=== PATIENT | male | born 1935 | race Caucasian/White ===

== ENCOUNTER 2017-11-09 13:45 | Inpatient (IN) ==
[2017-11-09] MEDS ORDERED: Nitroglycerin 0.4 MG TAB.SUBL SL PRN (18:30)
[2017-11-09] MEDS ORDERED: Naloxone 0.4 MG/ML INJ IVP PRN ×2 (18:33→18:38)
[2017-11-09] MEDS ORDERED: traMADol 50 MG TABLET PO PRN (18:33)
[2017-11-09] MEDS ORDERED: Acetaminophen 325 MG TABLET PO PRN (18:33)
[2017-11-09] MEDS ORDERED: *HR* Heparin 5,000 UNIT/ML VIAL IVP ONE (18:50)
[2017-11-09] MEDS ORDERED: *HR* Heparin 5,000 UNIT/ML VIAL IVP PRN ×2 (18:50)
--- NOTE | 2017-11-09 18:54 | Internal Med History&Physical ---
Date of Encounter: 11/09/17 Time of Encounter: 18:51 Internal Medicine - H&P: HPI Admitted From: Home Plans for Post Hospital Care: Home History of present illness: Mr. Duke is a 81-year-old white male presents emergency department via private vehicle complaining of shortness of breath and chest pain. He has a history of COPD and CHF, this morning feeling more short of breath than usual. He says he used a nebulizer treatment and then started having chest pain. He describes a midsternal chest burning that seems to have gotten somewhat better. He continues to be short of breath and upon arrival his oxygen saturation is 75%. He says he uses 3 L by nasal cannula at home 24 hours a day. His oxygen saturation improved significantly when he was placed in the bed and put on 5 L of nasal cannulated oxygen. He continues to be short of breath. He denies any nausea or vomiting. He has had no fever and denies a productive cough. He says that he feels like his ankles have been swollen. Past Med Surg Social Fam HX - Past Medical History Medical history: cardiomyopathy, CHF, COPD, coronary artery disease, diabetes, GERD, hyperlipidemia, hypertension, myocardial infarction, renal disease, TIA Psychiatric history: no psych history - Past Surgical History Surgical History: angioplasty/stent, appendectomy, carotid endarterectomy, coronary bypass (CABG) (1988), herniorrhaphy, pacemaker/AICD (upgrade to BiV- ICD on 03/29/[address] Vito Titus ) - Social History Smoking Status: Former smoker Smokeless Tobacco Status: No Alcohol use: none Drug use: none - Family History Mother Living Status: Hx Family Cardiac Disorders: Yes Father Living Status: Hx Family Endocrine Disorder: Yes (diabetes) Internal Medicine - H&P: Meds Aspirin [Adult Low Dose Aspirin EC] 81 mg PO DAILY 09/04/15 [History] Clopidogrel [Plavix] 75 mg PO DAILY 09/04/15 [History] HYDROcodone/Acet 5/325 mg [[place] 5-325 mg] 1 tab PO Q6H PRN 09/04/15 [History] Nitroglycerin [Nitrostat] 0.4 mg SL DAILY PRN 09/04/15 [History] Omeprazole [PriLOSEC] 20 mg PO DAILY 09/04/15 [History] Carvedilol 12.5 mg PO BID 02/16/16 [History] Isosorbide MONOnitrate (24 HR) [Imdur] 120 mg PO DAILY 02/16/16 [History] Simvastatin [Zocor] 40 mg PO HS 02/16/16 [History] Valsartan [Diovan] 40 mg PO DAILY 02/16/16 [History] Albuterol Sulfate [Albuterol Inhaler] 2 puff IH Q6HR PRN 07/06/17 [History] Benzonatate [Tessalon] 100 mg PO TID 07/06/17 [History] Ezetimibe [Zetia] 10 mg PO DAILY 07/06/17 [History] GuaiFENesin/Dextromethorphan [Robitussin/DM] 5 ml PO Q6HR #118 syrup 07/06/17 [ Rx] Guaifenesin [Mucinex] 600 mg PO BID 07/06/17 [History] Oseltamivir [Tamiflu] 75 mg PO DAILY #10 capsule 07/06/17 [Rx] predniSONE [PredniSONE] 40 mg PO DAILY 5 Days #20 tablet 07/06/17 [Rx] Ibuprofen 800 mg PO TID PRN #15 tablet 07/27/17 [Rx] 3 Allergy/AdvReac Type Severity Reaction Status Date / Time lisinopril Allergy Severe Swelling Verified 03/30/15 07:40 of Lip/Tongue/Throat All Systems PM: A 10-system review of systems was performed and is negative for pertinent findings except as documented above in the HPI. Review of systems: REVIEW OF SYSTEMS: CONSTITUTIONAL: No weight loss, fever, chills, weakness or fatigue. HEENT: Eyes: No visual loss, blurred vision, double vision or yellow sclerae. Ears, Nose, Throat: No hearing loss, sneezing, congestion, runny nose or sore throat. SKIN: No rash or itching. CARDIOVASCULAR: see HPI. RESPIRATORY: No shortness of breath, cough or sputum. GASTROINTESTINAL: No anorexia, nausea, vomiting or diarrhea. No abdominal pain or blood. GENITOURINARY: No dysuria, urgency, or frequency. NEUROLOGICAL: No headache, dizziness, syncope, paralysis, ataxia, numbness or tingling in the extremities. No change in bowel or bladder control. MUSCULOSKELETAL: No muscle, back pain, joint pain or stiffness. HEMATOLOGIC: No anemia, bleeding or bruising. LYMPHATICS: No enlarged nodes. No history of splenectomy. PSYCHIATRIC: No history of depression or anxiety. ENDOCRINOLOGIC: No reports of sweating, cold or heat intolerance. No polyuria or polydipsia. - Constitutional Vitals: Temp Pulse Resp BP Pulse Ox 97.6 F 72 14 158/74 96 11/09/17 16:10 11/09/17 16:10 11/09/17 16:10 11/09/17 16:10 11/09/17 16:10 General appearance: Present: A&O X 3 Exam: PHYSICAL EXAMINATION: GENERAL APPEARANCE: The patient is alert, oriented and in no acute distress. HEENT: Head is normocephalic. The sinuses are nontender. Pupils are equal and reactive. The nares are patent. Oropharynx clear without lesions. NECK: Supple without lymphadenopathy. HEART: Regular rate and rhythm. LUNGS: bilateral crackles up to the middle lung zone. ABDOMEN: Soft, nontender, nondistended with good bowel sounds heard. Inguinal area is normal. EXTREMITIES: Without cyanosis, clubbing or edema. NEUROLOGICAL: Gross nonfocal. SKIN: Warm and dry without any rash. - Assessment and plan (1) Acute respiratory failure with hypoxia Current Visit: Yes Status: Acute Assessment and plan: This is a 81-year-old male with past medical history of COPD, CAD status post stent placement, CHF, and hypertension presented with acute respiratory failure with hypoxia. - History of COPD, using oxygen 2-3 L at home. Patient used breathing treatment at home but does not help her symptoms. Not much wheezing on physical exam. - Recent diagnosis CHF, TTE 10/2017 showed ejection fraction 30-35%, global hypokinesia, and mild diastolic dysfunction. Patient already had a defibrillator. He is on Valsartan, Coreg, isosorbide at home, symptoms is consistent with NYHA stage III, unclear why the patient is not on diuretics, his blood pressure is not well controlled upon arrival. Chest x-ray revealed bilateral pulmonary congestion.. Patient on Lasix IV plus Aldactone. Valsartan dose increased to achieve better BP control. Patient may be a good candidate for Entresto. - Low-salt diet, strict I's and O's, daily weight. (2) CHF (congestive heart failure), NYHA class III Current Visit: Yes Status: Acute Assessment and plan: - Same as above. Qualifiers: Congestive heart failure type: systolic Congestive heart failure chronicity : chronic Qualified Code(s): I50.22 - Chronic systolic (congestive) heart failure (3) Elevated troponin Current Visit: Yes Status: Acute Assessment and plan: Troponin slightly elevated, unclear this is this is caused by [place] or CHF exacerbation. We will start patient on heparin drip, cycle troponin, telemetry monitoring, and EKG as needed. - Patient already on aspirin and Plavix at home. (4) CAD (coronary artery disease) Current Visit: No Status: Chronic Assessment and plan: - same as above. Qualifiers: Coronary Disease-Associated Artery/Lesion type: barrow artery [place] vs. transplanted heart: barrow heart Associated angina: with stable angina Qualified Code(s): I25.118 - Atherosclerotic heart disease of barrow coronary artery with other forms of angina pectoris (5) HTN (hypertension) Current Visit: No Status: Chronic Assessment and plan: - BP slightly elevated, medication adjusted as described above. Qualifiers: Hypertension type: essential hypertension Qualified Code(s): I10 - Essential (primary) hypertension (6) COPD (chronic obstructive pulmonary disease) Current Visit: No Status: Chronic Assessment and plan: - Continue home medication, oxygen as needed. Qualifiers: COPD type: chronic bronchitis Chronic bronchitis type: unspecified Qualified Code(s): J42 - Unspecified chronic bronchitis (7) Cardiomyopathy Current Visit: No Status: Chronic Assessment and plan: -Stable, continue home medications. Qualifiers: Cardiomyopathy type: unspecified Qualified Code(s): I42.9 - Cardiomyopathy , unspecified - Time Spent With Patient Total time spent is greater than 50% in coordination of care (as documented) at patient's floor/unit and/or counseling patient: Greater than 35 minutes
[2017-11-09 19:25] LABS: Hemoglobin 12.4 g/dL (12.9-16.9); Mean Corpuscular HGB Conc 32.6 g/dL (31.6-35.5); Mean Corpuscular Hemoglobin 27.9 pg (28.0-33.3); Mean Corpuscular Volume 85.6 fL (83.0-100.0); Mean Platelet Volume 10.4 fL (9.4-12.4); Platelet Count 181 K/mcL (140-400); Red Blood Count 4.44 M/mcL (4.19-5.50); Red Cell Distribution Width 14.6 % (11.5-14.5)
[2017-11-09 20:07] LABS: INR 1.2; Prothrombin Time 13.4 Seconds (9.4-12.1)
[2017-11-09 20:09] LABS: Activated Partial Thrombo Time 29.5 Seconds (26.0-36.0)
[2017-11-09] MEDS: Heparin 25,000 UNIT/500 ML D5W 25,000 UNIT/500 ML BAG IVC SCH (20:34)
--- NOTE | 2017-11-09 21:59 | Event Note ---
Date of Encounter: 11/09/17 Time of Encounter: 20:00 Rec'd call regarding critical trop level. The first was 0.11, and now it is 1.12. The patient denies any chest pain and is currently on a heparin drip. Consult placed for cardiology. Told the floor that cardiology should be called in am.
[2017-11-10 03:12] LABS: Hematocrit 36.2 % (37.5-50.1); Hemoglobin 11.9 g/dL (12.9-16.9); Immature Granulocytes % 0.9 % (0-4); Lymphocytes # 0.7 K/mcL (0.6-4.6); Lymphocytes % 9.8 %; Mean Corpuscular HGB Conc 32.9 g/dL (31.6-35.5); Mean Corpuscular Hemoglobin 27.9 pg (28.0-33.3); Mean Corpuscular Volume 84.8 fL (83.0-100.0); Mean Platelet Volume 10.4 fL (9.4-12.4); Monocytes # 0.1 K/mcL (0.0-1.3); Neutrophils # 6.2 K/mcL (1.6-8.9); Platelet Count 175 K/mcL (140-400); Red Blood Count 4.27 M/mcL (4.19-5.50); Red Cell Distribution Width 14.8 % (11.5-14.5); Segmented Neutrophils % 88.3 %
[2017-11-10 03:31] LABS: Calcium 8.7 mg/dL (8.6-10.3); Chol/HDL Ratio 3.1 (0-4.9); Potassium 3.6 mEq/L (3.5-5.1)
[2017-11-10] MEDS ORDERED: Furosemide 20 MG/2 ML VIAL IVP SCH (08:00)
[2017-11-10] MEDS ORDERED: (Ezetimibe [Zetia] 10 MG) PO SCH (09:00)
[2017-11-10] MEDS ORDERED: Valsartan 80 MG TABLET PO SCH (09:00)
[2017-11-10] MEDS: Isosorbide MONOnitrate (24 HR) 60 MG TAB.ER.24H PO SCH (10:08)
[2017-11-10] MEDS: Spironolactone 25 MG TABLET PO SCH (10:09)
[2017-11-10] MEDS: Valsartan 80 MG TABLET PO SCH (10:09)
[2017-11-10] MEDS: Aspirin Enteric Coated 81 MG Tablet PO SCH (10:09)
--- NOTE | 2017-11-10 10:22 | Cardiology Consult Note ---
<Gabi Rivas April - Last Filed: 11/10/17 10:25> Date of Encounter: 11/10/17 Time of Encounter: 10:00 Assessment and Plan (1) NSTEMI (non-ST elevated myocardial infarction) Current Visit: Yes Status: Acute Peak troponin 1.16 with downward trend. ECG unchanged from previous. Pain free upon exam. Reports typical chest pain symptoms prior to admission, did not improve with x3 NTG tabs. Also hypoxic upon presentation. Hx of CAD s/p CABG (x2); last LHC 2013 s/p PCI to bypass grafts. Discussed possible LHC with possible PCI; patient declines presently and wants to proceed with medical management if symptoms can be controlled. Continue heparin gtt for 48 hours, asa, statin, BB, nitrates, and plavix. Will add Ranexa. Check limited echo, if no significant changes in EF, will likely continue medical therapy. (2) Ischemic cardiomyopathy Current Visit: Yes Status: Acute Hx of ischemic cardiomyopathy s/p BiV-ICD. Last EF assessment, few weeks ago and demonstrated EF 30-35%--similar to prior. Had mildly abnormal stress (mild reversible ischemic at apex) has been medically managed. Last PCI 2013 s/p TAWANA to SVG- R PDA and SVG to diagonal 1. Continue current medical therapy including asa, statin, plavix, nitrates, ARB, and BB. (3) CHF (congestive heart failure), NYHA class III Current Visit: Yes Status: Acute Mild volume overload upon exam, LE edema presents which is new for patient. Not previously requiring diuretic as outpatient. Agree with IV lasix. Strict I&Os, daily weights, Na/fluid restricted diet. Continue BB, ARB. Qualifiers: Congestive heart failure type: systolic Congestive heart failure chronicity : acute on chronic Qualified Code(s): I50.23 - Acute on chronic systolic ( congestive) heart failure (4) Renal insufficiency Current Visit: Yes Status: Acute Hx of CKD. SCr appears to be stable today. Monitor kidney function closely as we are diuresing. Discussion w patient/family: The assessment and plan as outlined above was discussed with the patient and/or family members who expressed understanding and agreement. All questions were answered. Thank you for involving us in the care of your patient. Please call with any questions. The patient will be discussed and reviewed with Dr. Patel; changes to be made accordingly. History of Present Illness Consult date: 11/10/17 Requesting physician: Stacia King Consult reason: Elevated troponin Chief complaint: Chest pain History of present illness: Mr. Duke is a 81 year old male with PMHx significant for CAD s/p CABG (x2) s/p PCI, ischemic cardiomyopathy s/p BiV-ICD, HTN, HLD, PAD, and hx of AV block who presented to the ED with complaints of midsternal chest burning that started yesterday. Reports he took a total of 3 NTG tabs which did not improve pain which prompted ED evaluation. Upon arrival at [facility] ED, SPO2 waa 75%, supplemental oxygen was administered with breathing treatment and pain reportedly resolved. He reports ongoing shortness of breath and difficulty breathing which has seemed to worsen over the past 2 months in addition to lower extremity edema. Of note, has not previously been on lasix. ECG upon arrival demonstrated paced rhythm. Troponin peak at 1.16 with downward trend. Reports brown sputum production this morning. CXR at [facility] demonstrated vascular congestion, multifocal PNA vs. pulmonary edema Prior CV testing: TTE 10/27/17: LVEF 30-35%, global LV hypokinesis, severely dilated LA, no PH, mild LVDD Regadenoson nuclear 08/31/16: mild reversible liliya-infarct ischemia at apex, medium to large infarct involving the inferior wall, inferolateral wall, and apex, gated EF=38%, LV is dilated [facility] 05/2014: severe 3vCAD, EF 35%, s/p patent 4/5 patent bypass grafts; BARRAZA- mLAD patent, sequential SVG-2nd OM patent, SVG-dLAD occluded and s/p successful PTCA/DE to prox-mid body of SVG-R PDA and TAWANA to dSVG-diag 1; previously stented proximal body of SVG to diag 1 widely patent. Past Med Surg Social Fam HX - Past Medical History Attestation: Yes The following information was validated with the patient. Source: patient Medical history: cardiomyopathy, CHF, COPD, coronary artery disease, diabetes, GERD, hyperlipidemia, hypertension, myocardial infarction, renal disease, TIA Psychiatric history: no psych history - Past Surgical History Surgical History: angioplasty/stent, appendectomy, carotid endarterectomy, coronary bypass (CABG), herniorrhaphy, pacemaker/AICD - Social History Smoking Status: Former smoker Smokeless Tobacco Status: No Alcohol use: none Drug use: none - Family History Mother Living Status: Hx Family Cardiac Disorders: Yes Father Living Status: Hx Family Endocrine Disorder: Yes (diabetes) Medications and Allergies Clopidogrel [Plavix] 75 mg PO DAILY 09/04/15 [History] HYDROcodone/Acet 5/325 mg [[place] 5-325 mg] 1 tab PO Q6H PRN 09/04/15 [History] Nitroglycerin [Nitrostat] 0.4 mg SL DAILY PRN 09/04/15 [History] Omeprazole [PriLOSEC] 20 mg PO DAILY 09/04/15 [History] Carvedilol 12.5 mg PO BID 02/16/16 [History] Isosorbide MONOnitrate (24 HR) [Imdur] 120 mg PO DAILY 02/16/16 [History] Simvastatin [Zocor] 40 mg PO HS 02/16/16 [History] Valsartan [Diovan] 40 mg PO DAILY 02/16/16 [History] Albuterol Sulfate [Albuterol Inhaler] 2 puff IH Q6HR PRN 07/06/17 [History] Ezetimibe [Zetia] 10 mg PO DAILY 07/06/17 [History] Tiotropium Br/Olodaterol HCl [Stiolto Respimat Inhal [place]] 2 puff IH DAILY [History] 3 Allergy/AdvReac Type Severity Reaction Status Date / Time lisinopril Allergy Severe Swelling Verified 03/30/15 07:40 of Lip/Tongue/Throat All Systems Review: The remainder of the systems were reviewed and are negative - Cardiovascular Cardiovascular: as per HPI Physical Examination Vital Signs, Last 4 Hours Temp Pulse Resp BP Pulse Ox 11/10/17 07:39 97.5 F L 70 20 103/57 92 General: Conversant HEENT: Atraumatic, Normocephaly Cardiac: Reg Rate and Rhythm, Normal S1 and S2 Lungs: Normal Breath Sounds Neuro: Alert and responsive Abdomen: Soft Skin: No rashes noted on visualized skin Extremities: Other (mild BLE edema noted. ) Results 11/10/17 02:51 11/10/17 02:51 Lab Results 11/09/17 11/09/17 11/09/17 18:51 18:55 18:55 WBC 4.6 Hgb 12.4 L Hct 38.0 Plt Count 181 INR 1.2 APTT 29.5 Sodium Potassium Chloride Carbon Dioxide BUN Creatinine Glucose Calcium Troponin I 1.12 H* 11/10/17 11/10/17 11/10/17 00:26 02:51 02:51 WBC 7.0 D Hgb 11.9 L Hct 36.2 L Plt Count 175 INR APTT Sodium 142 Potassium 3.6 Chloride 101 Carbon Dioxide 30 H BUN 18 Creatinine 1.40 H Glucose 175 H Calcium 8.7 Troponin I 1.16 H* 11/10/17 11/10/17 11/10/17 02:51 06:16 08:52 WBC Hgb Hct Plt Count INR APTT 92.6 H D 68.1 H Sodium Potassium Chloride Carbon Dioxide BUN Creatinine Glucose Calcium Troponin I 0.76 H* Active Medications Acetaminophen (Tylenol) 650 mg PO Q6HR PRN PRN Reason: Mild Pain/Fever Stop: 05/11/18 18:34 Aspirin (Aspirin Ec) 81 mg PO DAILY [facility] Stop: 05/12/18 09:01 Last Admin: 11/10/17 10:09 Dose: 81 mg Carvedilol (Coreg) 12.5 mg PO BIDWM ANALISA Stop: 05/11/18 21:01 Last Admin: 11/10/17 10:09 Dose: 12.5 mg Clopidogrel Bisulfate (Plavix) 75 mg PO DAILY ANALISA Stop: 05/12/18 09:01 Last Admin: 11/10/17 10:08 Dose: 75 mg Furosemide (Lasix) 20 mg IVP BIDDIURETIC ANALISA Stop: 05/12/18 08:01 Last Admin: 11/10/17 10:08 Dose: 20 mg Heparin Sodium (Porcine) (Heparin) 6,200 unit 70 unit/kg (6200 unit) IVP Q6HR PRN PRN Reason: SEE COMMENTS Stop: 05/11/18 18:51 Heparin Sodium (Porcine) (Heparin) 3,100 unit 35 unit/kg (3100 unit) IVP Q6H PRN PRN Reason: SEE COMMENTS Stop: 05/11/18 18:51 Hydralazine HCl (Hydralazine) 10 mg IVP Q6HR PRN PRN Reason: Hypertension BP>160 Stop: 05/12/18 00:15 Last Admin: 11/10/17 00:32 Dose: 10 mg Heparin Sodium/Dextrose (Heparin 25,000 Unit/500 Ml D5w) 25,000 unit in 500 mls @ 24.741 mls/hr IVC .[id number] ANALISA; 14 UNIT/KG/HR PRN Reason: Protocol Stop: 05/11/18 19:01 Last Titration: 11/10/17 03:40 Dose: 14 unit/kg/hr, 24.741 mls/hr Isosorbide Mononitrate (Imdur) 120 mg PO DAILY ANALISA Stop: 05/12/18 09:01 Last Admin: 11/10/17 10:08 Dose: 120 mg Naloxone HCl (Narcan) 0.4 mg IVP Q2MIN PRN PRN Reason: SEE COMMENTS Stop: 05/11/18 18:39 Nitroglycerin (Nitroglycerin) 0.4 mg SL DAILY PRN PRN Reason: Chest Pain Stop: 05/11/18 18:31 Omeprazole (Prilosec) 20 mg PO DAILY ANALISA PRN Reason: Protocol Stop: 05/12/18 09:01 Last Admin: 11/10/17 10:08 Dose: 20 mg Simvastatin (Zocor) 40 mg PO HS ANALISA PRN Reason: Protocol Stop: 05/11/18 21:01 Last Admin: 11/09/17 20:32 Dose: 40 mg Spironolactone (Aldactone) 12.5 mg PO DAILY [facility] Stop: 05/12/18 09:01 Last Admin: 11/10/17 10:09 Dose: 12.5 mg Tramadol HCl (Ultram) 50 mg PO Q6HR PRN PRN Reason: Moderate Pain Stop: 05/11/18 18:34 Valsartan (Diovan) 80 mg PO DAILY [facility] Stop: 05/12/18 09:01 Last Admin: 11/10/17 10:09 Dose: 80 mg - Imaging and Cardiology Stress Test: report reviewed Echo: report reviewed Cardiac cath: report reviewed Other Results: 12 hour tele: avg HR=74 - EKG Interpretation EKG results cardiology: personally reviewed Consult Discharge Plan - Plan Referrals: Wili Kendrick MD [Primary Care Provider] - <Diego Patel - Last Filed: 11/10/17 16:01> Date of Encounter: 11/10/17 - Attending Attestation I have personally performed a face to face evaluation on this patient. I have reviewed and agree with the care plan. History and Exam by me shows: 81 YOM with extensive CAD s/p PCI of 2/4 vein grafts 2014/patent BARRAZA to LAD, with an EF 35% also s/p ICD. He is mildly volume overloaded with chest pain likely ischemic in nature. Patient declines a LHC and would likelt o try aggressive medical management. I do feel he will likely need a LHC but as per patients wishes will pursue medical management Assessment and Plan Discussion w patient/family: The assessment and plan as outlined above was discussed with the patient and/or family members who expressed understanding and agreement. All questions were answered. Thank you for involving us in the care of your patient. Please call with any questions. History of Present Illness History of present illness: Mr. Duke is a 81 year old male All Systems Review: The remainder of the systems were reviewed and are negative Physical Examination Vital Signs, Last 4 Hours BP 11/10/17 13:55 115/53 Results 11/10/17 02:51 11/10/17 02:51 Lab Results 11/09/17 11/09/17 11/09/17 18:51 18:55 18:55 WBC 4.6 Hgb 12.4 L Hct 38.0 Plt Count 181 INR 1.2 APTT 29.5 Sodium Potassium Chloride Carbon Dioxide BUN Creatinine Glucose Calcium Troponin I 1.12 H* 11/10/17 11/10/17 11/10/17 00:26 02:51 02:51 WBC 7.0 D Hgb 11.9 L Hct 36.2 L Plt Count 175 INR APTT Sodium 142 Potassium 3.6 Chloride 101 Carbon Dioxide 30 H BUN 18 Creatinine 1.40 H Glucose 175 H Calcium 8.7 Troponin I 1.16 H* 11/10/17 11/10/17 11/10/17 02:51 06:16 08:52 WBC Hgb Hct Plt Count INR APTT 92.6 H D 68.1 H Sodium Potassium Chloride Carbon Dioxide BUN Creatinine Glucose Calcium Troponin I 0.76 H*
[2017-11-10] MEDS ORDERED: Furosemide 20 MG TABLET PO PRN (16:26)
--- NOTE | 2017-11-10 16:27 | Internal Med Progress Note ---
Date of Encounter: 11/10/17 Time of Encounter: 16:00 - Assessment and plan (1) NSTEMI (non-ST elevated myocardial infarction) Current Visit: Yes Status: Acute Assessment and plan: His trop peaked at 1.12 Started trendong down he does have severe CAD s/p CABG, s/p stent to bypass grafts too he would get benefit with C however pt refusing for LHC now wanted to try medical management Card is on board cont Heparin gtt for 48 hrs cont ASA + Plavix + Statin + BB + Imdur + Ranexa _+ ARB (2) Acute respiratory failure with hypoxia Current Visit: Yes Status: Acute Assessment and plan: Due to CHF exacerbation cont Diuresis switch to PO Lasix Cont Aldactone try to wean him off the O2 (3) Systolic CHF, acute on chronic Current Visit: Yes Status: Acute Assessment and plan: Improving switched to PO Lasix reviewed 2 D Echo showed LVEF 40% (4) Cardiomyopathy Current Visit: No Status: Chronic Assessment and plan: Ischemic cardiomyopathy Qualifiers: Cardiomyopathy type: unspecified Qualified Code(s): I42.9 - Cardiomyopathy , unspecified (5) CAD (coronary artery disease) Current Visit: No Status: Chronic Qualifiers: Coronary Disease-Associated Artery/Lesion type: [place] artery [place] vs. transplanted heart: [place] heart Associated angina: with stable angina Qualified Code(s): I25.118 - Atherosclerotic heart disease of [place] coronary artery with other forms of angina pectoris (6) HTN (hypertension) Current Visit: No Status: Chronic Assessment and plan: Stable and well controlled with current regimen Qualifiers: Hypertension type: essential hypertension Qualified Code(s): I10 - Essential (primary) hypertension (7) COPD (chronic obstructive pulmonary disease) Current Visit: No Status: Chronic Assessment and plan: Not in exacerbation Continue home regimen INH Try to wean him off the O2 to home dose Qualifiers: COPD type: chronic bronchitis Chronic bronchitis type: unspecified Qualified Code(s): J42 - Unspecified chronic bronchitis - Time Spent With Patient Total time spent is greater than 50% in coordination of care (as documented) at patient's floor/unit and/or counseling patient: - Subjective Interval history: Mr. Duke is a 81-year-old white male presents to ER with complaining of shortness of breath and chest pain. He has a history of COPD, chronic hypoxic resp failure and Systolic CHF. He also c/o chest pain, described as a midsternal chest burning that seems to have gotten somewhat better with nitro. He continues to be short of breath and upon arrival his oxygen saturation is 75% . He says he uses 3 L by nasal cannula at home 24 hours a day. His oxygen saturation improved significantly when he was placed in the bed and put on 5 L of nasal cannulated oxygen. He also have significantly elevated Trop @ 1.12 He was admitted in the hospital and started him on IV diuresis. Last night his troponin peaked at 1.16 and started trending down now. He denied any more CP. Still has some SOB and NASCIMENTO. Currently on 4 lit O2. - Constitutional Vitals: Temp Pulse Resp BP Pulse Ox 97.4 F L 67 18 115/53 95 11/10/17 10:44 11/10/17 10:44 11/10/17 10:44 11/10/17 13:55 11/10/17 10:44 General appearance: Present: A&O X 3 - Head Head exam: Present: atraumatic, normal inspection - Neck Neck exam general surgery: Present: supple - Respiratory Respiratory exam: Present: decreased breath sounds. Absent: rales, respiratory distress, rhonchi, wheezes - Cardiovascular Cardiovascular exam: Present: RRR, +S1, +S2. Absent: tachycardia - GI/Abdominal GI/Abdominal exam: Present: normal bowel sounds, soft. Absent: rebound, rigid, tenderness - Extremities Exam Extremities exam: Absent: calf tenderness, pedal edema, tenderness - Back Exam Back exam: Absent: CVA tenderness (L), CVA tenderness (R) - Neurological Exam Neurological exam: Present: alert, oriented X3 - Psychiatric Psychiatric exam: Present: normal affect, normal mood - Skin Skin exam: Absent: rash Internal Medicine: Result - Labs CBC & Chem 7: 11/10/17 02:51 11/10/17 02:51 Labs: Short CBC 11/09/17 11/10/17 Range/Units 18:55 02:51 WBC 4.6 7.0 D (4.3-11.1) K/mcL Hgb 12.4 L 11.9 L (12.9-16.9) g/dL Hct 38.0 36.2 L (37.5-50.1) % Plt Count 181 175 (140-400) K/mcL Neutrophils # 6.2 (1.6-8.9) K/mcL BMP 11/10/17 02:51 Sodium 142 Potassium 3.6 Chloride 101 Carbon Dioxide 30 H BUN 18 Creatinine 1.40 H Glucose 175 H Calcium 8.7 Cardiac Enzymes 11/09/17 11/10/17 11/10/17 Range/Units 18:51 00:26 06:16 Troponin I 1.12 H* 1.16 H* 0.76 H* (< 0.04) ng/mL - ABG Interpretation ABG results: PT/INR, D-dimer PT 13.4 Seconds (9.4-12.1) H 11/09/17 18:55 - Impressions Impressions Echocardiogram Limited Views 11/10/17 10:51 Impressions: LVEF 40%. Normal LV chamber size. Mild concentric left ventricular hypertrophy. Global left ventricular systolic dysfunction. Atypical septal motion consistent with post-operative status. Left Ventricular Wall Motion: Rest Echo Findings The apex, apical inferior, mid inferior, basal inferior, apical anterior, mid anterior, basal anterior, apical septal, mid inferior septal, basal inferior septal, apical lateral, mid anterior lateral, basal anterior lateral, mid anterior septal, mid inferior lateral, basal anterior septal and basal inferior lateral lyles were hypokinetic. Findings: Study Quality * Technically adequate exam. ECG Findings * Paced rhythm. Left Ventricle * LVEF 40%. * Normal LV chamber size. * Mild concentric left ventricular hypertrophy. * Global left ventricular systolic dysfunction. * Atypical septal motion consistent with post-operative status. Right Ventricle * Normal right ventricular structure and function. Aorta * Normally sized aortic root. Pericardium * The pericardium appears normal. Device lead * A device lead was visualized in the right atrium and right ventricle. Consult Discharge Plan - Plan Referrals: Wili Kendrick MD [Primary Care Provider] -
[2017-11-10] MEDS: Heparin 25,000 UNIT/500 ML D5W 25,000 UNIT/500 ML BAG IVC SCH (17:16)
[2017-11-10] MEDS: Ranolazine 500 MG TAB.ER.12H PO SCH ×3 (17:16→21:29)
[2017-11-11 03:29] LABS: Basophils % 0.1 %; Hematocrit 34.4 % (37.5-50.1); Hemoglobin 10.7 g/dL (12.9-16.9); Immature Granulocytes % 0.4 % (0-4); Lymphocytes # 1.1 K/mcL (0.6-4.6); Lymphocytes % 9.3 %; Mean Corpuscular HGB Conc 31.1 g/dL (31.6-35.5); Mean Corpuscular Hemoglobin 26.6 pg (28.0-33.3); Mean Corpuscular Volume 85.6 fL (83.0-100.0); Mean Platelet Volume 10.5 fL (9.4-12.4); Monocytes # 0.5 K/mcL (0.0-1.3); Monocytes % 4.4 %; Neutrophils # 9.9 K/mcL (1.6-8.9); Platelet Count 186 K/mcL (140-400); Red Blood Count 4.02 M/mcL (4.19-5.50); Red Cell Distribution Width 14.7 % (11.5-14.5); Segmented Neutrophils % 85.8 %
[2017-11-11 03:51] LABS: Calcium 8.4 mg/dL (8.6-10.3); Magnesium 1.8 mg/dL (1.6-2.6); Potassium 3.7 mEq/L (3.5-5.1)
[2017-11-11 03:56] LABS: Troponin I 0.52 ng/mL (< 0.04)
[2017-11-11] MEDS: Spironolactone 25 MG TABLET PO SCH (07:53)
[2017-11-11] MEDS: Valsartan 80 MG TABLET PO SCH (07:53)
[2017-11-11] MEDS: Isosorbide MONOnitrate (24 HR) 60 MG TAB.ER.24H PO SCH (07:53)
[2017-11-11] MEDS: Ranolazine 500 MG TAB.ER.12H PO SCH ×2 (07:53→21:45)
[2017-11-11] MEDS: Aspirin Enteric Coated 81 MG Tablet PO SCH (07:54)
--- NOTE | 2017-11-11 11:05 | Cardiology Progress Note ---
Date of Encounter: 11/11/17 Time of Encounter: 10:40 Assessment and Plan (1) NSTEMI (non-ST elevated myocardial infarction) Current Visit: Yes Status: Acute Peak troponin 1.16 with downward trend. ECG unchanged from previous. Pain free upon exam. Reports typical chest pain symptoms prior to admission, did not improve with x3 NTG tabs. Also hypoxic upon presentation. Hx of CAD s/p CABG (x2); last LHC 2013 s/p PCI to bypass grafts. Discussed possible LHC with possible PCI; patient declines presently and wants to proceed with medical management if symptoms can be controlled. Continue heparin gtt for total of 48 hours. Continue asa, statin, BB, nitrates, and ranexa. TTE demonstrated mildly improved LVEF, 40%. Will continue medical therapy. Can consider LHC/ischemic evaluation in the outpatient setting if symptoms recur. Discussed with Dr. Titus, Cardiology will sign-off, will coordinate outpatient follow-up. (2) Ischemic cardiomyopathy Current Visit: Yes Status: Acute Hx of ischemic cardiomyopathy s/p BiV-ICD. Last EF assessment, few weeks ago and demonstrated EF 30-35%--similar to prior. Had mildly abnormal stress (mild reversible ischemic at apex) has been medically managed. Last PCI 2013 s/p TA[place]NA to SVG- R PDA and SVG to diagonal 1. Continue current medical therapy including asa, statin, plavix, nitrates, ARB, and BB. (3) CHF (congestive heart failure), NYHA class III Current Visit: Yes Status: Acute Mild volume overload upon exam, LE edema presents which is new for patient. Not previously requiring diuretic as outpatient. Reports LE edema, shortness of breath improved. Appears euvolemic upon exam, agree with stopping IV lasix. Patient may benefit from prn Lasix in the outpatient setting. Strict I&Os, daily weights, Na/fluid restricted diet. Continue BB, ARB. Qualifiers: Congestive heart failure type: systolic Congestive heart failure chronicity : acute on chronic Qualified Code(s): I50.23 - Acute on chronic systolic ( congestive) heart failure (4) Renal insufficiency Current Visit: Yes Status: Acute Hx of CKD. SCr appears to be stable today. Monitor kidney function closely as we are diuresing. Discussion w patient/family: The assessment and plan as outlined above was discussed with the patient and/or family members who expressed understanding and agreement. All questions were answered. Thank you for involving us in the care of your patient. Please call with any questions. The patient will be discussed and reviewed with Dr. Titus; changes to be made accordingly. Subjective Principal diagnosis: NSTEMI, CHF Interval history: Seen and examined. Dyspnea improved today, no longer on oxymask. LE edema also improving. Objective Vital Signs, Last 4 Hours Pulse Ox 11/11/17 07:59 99 General: Conversant, No Apparent Distress HEENT: Atraumatic, Normocephaly Cardiac: Reg Rate and Rhythm, Normal S1 and S2 Lungs: Normal Breath Sounds Neuro: Alert and responsive Abdomen: Soft Skin: No rashes noted on visualized skin Musculoskeletal: No Chest Wall Tenderness Extremities: No Edema, Normal Pulses Results 11/11/17 03:09 11/11/17 03:09 Lab Results 11/11/17 11/11/17 11/11/17 03:09 03:09 09:00 WBC 11.5 H D Hgb 10.7 L Hct 34.4 L Plt Count 186 APTT 74.2 H Sodium 139 Potassium 3.7 Chloride 101 Carbon Dioxide 30 H BUN 24 H Creatinine 1.41 H Glucose 131 H Calcium 8.4 L Magnesium 1.8 Troponin I 0.52 H* Active Medications Acetaminophen (Tylenol) 650 mg PO Q6HR PRN PRN Reason: Mild Pain/Fever Stop: 05/11/18 18:34 Aspirin (Aspirin Ec) 81 mg PO DAILY [facility] Stop: 05/12/18 09:01 Last Admin: 11/11/17 07:54 Dose: 81 mg Atorvastatin Calcium (Lipitor) 40 mg PO HS [facility] Stop: 05/12/18 21:01 Last Admin: 11/10/17 21:30 Dose: 40 mg Calcium Carbonate (Tums) 500 mg PO Q6HR PRN; Protocol PRN Reason: Heartburn/indigestion Stop: 05/13/18 10:12 Last Admin: 11/11/17 10:15 Dose: 500 mg Carvedilol (Coreg) 12.5 mg PO BIDWM [facility] Stop: 05/11/18 21:01 Last Admin: 11/11/17 07:53 Dose: 12.5 mg Clopidogrel Bisulfate (Plavix) 75 mg PO DAILY [facility] Stop: 05/12/18 09:01 Last Admin: 11/11/17 07:53 Dose: 75 mg Furosemide (Lasix) 20 mg PO DAILY PRN PRN Reason: Edema Stop: 05/12/18 16:27 Heparin Sodium (Porcine) (Heparin) 6,200 unit 70 unit/kg (6200 unit) IVP Q6HR PRN PRN Reason: SEE COMMENTS Stop: 05/11/18 18:51 Heparin Sodium (Porcine) (Heparin) 3,100 unit 35 unit/kg (3100 unit) IVP Q6H PRN PRN Reason: SEE COMMENTS Stop: 05/11/18 18:51 Hydralazine HCl (Hydralazine) 10 mg IVP Q6HR PRN PRN Reason: Hypertension BP>160 Stop: 05/12/18 00:15 Last Admin: 11/10/17 00:32 Dose: 10 mg Heparin Sodium/Dextrose (Heparin 25,000 Unit/500 Ml D5w) 25,000 unit in 500 mls @ 24.741 mls/hr IVC .[id number] ANALISA; 14 UNIT/KG/HR PRN Reason: Protocol Stop: 05/11/18 19:01 Last Titration: 11/11/17 09:44 Dose: 14 unit/kg/hr, 24.741 mls/hr Isosorbide Mononitrate (Imdur) 120 mg PO DAILY [facility] Stop: 05/12/18 09:01 Last Admin: 11/11/17 07:53 Dose: 120 mg Naloxone HCl (Narcan) 0.4 mg IVP Q2MIN PRN PRN Reason: SEE COMMENTS Stop: 05/11/18 18:39 Nitroglycerin (Nitroglycerin) 0.4 mg SL DAILY PRN PRN Reason: Chest Pain Stop: 05/11/18 18:31 Omeprazole (Prilosec) 20 mg PO DAILY [facility] PRN Reason: Protocol Stop: 05/12/18 09:01 Last Admin: 11/11/17 07:54 Dose: 20 mg Ranolazine (Ranexa) 500 mg PO BID [facility] Stop: 05/12/18 11:01 Last Admin: 11/11/17 07:53 Dose: 500 mg Spironolactone (Aldactone) 12.5 mg PO DAILY [facility] Stop: 05/12/18 09:01 Last Admin: 11/11/17 07:53 Dose: 12.5 mg Tramadol HCl (Ultram) 50 mg PO Q6HR PRN PRN Reason: Moderate Pain Stop: 05/11/18 18:34 Valsartan (Diovan) 80 mg PO DAILY [facility] Stop: 05/12/18 09:01 Last Admin: 11/11/17 07:53 Dose: 80 mg - Imaging and Cardiology Echo: report reviewed Cardiac cath: report reviewed - EKG Interpretation EKG results cardiology: personally reviewed Consult Discharge Plan - Plan Referrals: Wili Kendrick MD [Primary Care Provider] -
[2017-11-11] MEDS: Heparin 25,000 UNIT/500 ML D5W 25,000 UNIT/500 ML BAG IVC SCH (11:29)
--- NOTE | 2017-11-11 13:45 | Internal Med Progress Note ---
Date of Encounter: 11/11/17 Time of Encounter: 10:30 - Assessment and plan (1) NSTEMI (non-ST elevated myocardial infarction) Current Visit: Yes Status: Acute Assessment and plan: His trop peaked at 1.12 Started trendong down he does have severe CAD s/p CABG, s/p stent to bypass grafts too he would get benefit with C however pt refusing for LHC now wanted to try medical management Card is on board cont Heparin gtt for 48 hrs cont ASA + Plavix + Statin + BB + Imdur + Ranexa + ARB (2) Acute respiratory failure with hypoxia Current Visit: Yes Status: Acute Assessment and plan: Due to CHF exacerbation cont Diuresis He still has significant edema.. so will switch to IV Lasix Cont Aldactone try to wean him off the O2 (3) Systolic CHF, acute on chronic Current Visit: Yes Status: Acute Assessment and plan: Improving reviewed 2 D Echo showed LVEF 40% (4) Cardiomyopathy Current Visit: No Status: Chronic Assessment and plan: Ischemic cardiomyopathy Qualifiers: Cardiomyopathy type: unspecified Qualified Code(s): I42.9 - Cardiomyopathy , unspecified (5) CAD (coronary artery disease) Current Visit: No Status: Chronic Assessment and plan: same as above. Qualifiers: Coronary Disease-Associated Artery/Lesion type: [place] artery [place] vs. transplanted heart: [place] heart Associated angina: with stable angina Qualified Code(s): I25.118 - Atherosclerotic heart disease of [place] coronary artery with other forms of angina pectoris (6) HTN (hypertension) Current Visit: No Status: Chronic Assessment and plan: Stable and well controlled with current regimen Qualifiers: Hypertension type: essential hypertension Qualified Code(s): I10 - Essential (primary) hypertension (7) COPD (chronic obstructive pulmonary disease) Current Visit: No Status: Chronic Assessment and plan: Not in exacerbation Continue home regimen INH Try to wean him off the O2 to home dose Qualifiers: COPD type: chronic bronchitis Chronic bronchitis type: unspecified Qualified Code(s): J42 - Unspecified chronic bronchitis - Time Spent With Patient Total time spent is greater than 50% in coordination of care (as documented) at patient's floor/unit and/or counseling patient: - Subjective Interval history: Mr. Duke is a 81-year-old white male presents to ER with complaining of shortness of breath and chest pain. He has a history of COPD, chronic hypoxic resp failure and Systolic CHF. He also c/o chest pain, described as a midsternal chest burning that seems to have gotten somewhat better with nitro. He continues to be short of breath and upon arrival his oxygen saturation is 75% . He says he uses 3 L by nasal cannula at home 24 hours a day. His oxygen saturation improved significantly when he was placed in the bed and put on 5 L of nasal cannulated oxygen. He also have significantly elevated Trop @ 1.12 He was admitted in the hospital and started him on IV diuresis. Initially his troponin peaked at 1.16 and started trending down now. He denied any more CP. Still has some SOB and NASCIMENTO. Currently on 4 lit O2. No events over night - Constitutional Vitals: Temp Pulse Resp BP Pulse Ox 98.2 F 60 16 116/63 98 11/11/17 11:10 11/11/17 11:10 11/11/17 11:10 11/11/17 11:10 11/11/17 11:10 General appearance: Present: A&O X 3 - Head Head exam: Present: atraumatic, normal inspection - Neck Neck exam general surgery: Present: supple - Respiratory Respiratory exam: Present: decreased breath sounds. Absent: rales, respiratory distress, rhonchi, wheezes - Cardiovascular Cardiovascular exam: Present: +S1, +S2 - GI/Abdominal GI/Abdominal exam: Present: normal bowel sounds, soft. Absent: rebound, rigid, tenderness - Extremities Exam Extremities exam: Present: pedal edema (1+). Absent: calf tenderness, tenderness - Back Exam Back exam: Absent: CVA tenderness (L), CVA tenderness (R) - Psychiatric Psychiatric exam: Present: normal affect, normal mood Internal Medicine: Result - Labs CBC & Chem 7: 11/11/17 03:09 11/11/17 03:09 Labs: Short CBC 11/11/17 Range/Units 03:09 WBC 11.5 H D (4.3-11.1) K/mcL Hgb 10.7 L (12.9-16.9) g/dL Hct 34.4 L (37.5-50.1) % Plt Count 186 (140-400) K/mcL Neutrophils # 9.9 H (1.6-8.9) K/mcL BMP 05/19/18 03:09 Sodium 139 Potassium 3.7 Chloride 101 Carbon Dioxide 30 H BUN 24 H Creatinine 1.41 H Glucose 131 H Calcium 8.4 L Cardiac Enzymes 11/11/17 Range/Units 03:09 Troponin I 0.52 H* (< 0.04) ng/mL - ABG Interpretation ABG results: PT/INR, D-dimer PT 13.4 Seconds (9.4-12.1) H 11/09/17 18:55 - Impressions Impressions Echocardiogram Limited Views 11/10/17 10:51 Impressions: LVEF 40%. Normal LV chamber size. Mild concentric left ventricular hypertrophy. Global left ventricular systolic dysfunction. Atypical septal motion consistent with post-operative status. Left Ventricular Wall Motion: Rest Echo Findings The apex, apical inferior, mid inferior, basal inferior, apical anterior, mid anterior, basal anterior, apical septal, mid inferior septal, basal inferior septal, apical lateral, mid anterior lateral, basal anterior lateral, mid anterior septal, mid inferior lateral, basal anterior septal and basal inferior lateral lyles were hypokinetic. Findings: Study Quality * Technically adequate exam. ECG Findings * Paced rhythm. Left Ventricle * LVEF 40%. * Normal LV chamber size. * Mild concentric left ventricular hypertrophy. * Global left ventricular systolic dysfunction. * Atypical septal motion consistent with post-operative status. Right Ventricle * Normal right ventricular structure and function. Aorta * Normally sized aortic root. Pericardium * The pericardium appears normal. Device lead * A device lead was visualized in the right atrium and right ventricle. Consult Discharge Plan - Plan Referrals: Wili Kendrick MD [Primary Care Provider] -
[2017-11-11] MEDS: Furosemide 20 MG/2 ML VIAL IVP SCH ×2 (14:15→21:46)
[2017-11-12] MEDS: Isosorbide MONOnitrate (24 HR) 60 MG TAB.ER.24H PO SCH (08:36)
[2017-11-12] MEDS: Ranolazine 500 MG TAB.ER.12H PO SCH (08:36)
[2017-11-12] MEDS: Aspirin Enteric Coated 81 MG Tablet PO SCH (08:36)
[2017-11-12] MEDS: Spironolactone 25 MG TABLET PO SCH (08:37)
[2017-11-12] MEDS: Valsartan 80 MG TABLET PO SCH (08:38)
[2017-11-12] MEDS: Furosemide 20 MG/2 ML VIAL IVP SCH (08:38)
[2017-11-12 09:06] LABS: Basophils % 0.3 %; Eosinophils # 0.3 K/mcL (0.0-0.6); Hematocrit 37.2 % (37.5-50.1); Hemoglobin 11.4 g/dL (12.9-16.9); Immature Granulocytes % 0.3 % (0-4); Lymphocytes # 2.1 K/mcL (0.6-4.6); Lymphocytes % 23.6 %; Mean Corpuscular HGB Conc 30.6 g/dL (31.6-35.5); Mean Corpuscular Hemoglobin 26.8 pg (28.0-33.3); Mean Corpuscular Volume 87.5 fL (83.0-100.0); Mean Platelet Volume 10.6 fL (9.4-12.4); Monocytes # 0.7 K/mcL (0.0-1.3); Neutrophils # 5.6 K/mcL (1.6-8.9); Platelet Count 180 K/mcL (140-400); Red Blood Count 4.25 M/mcL (4.19-5.50); Segmented Neutrophils % 64.8 %
[2017-11-12 09:27] LABS: Calcium 8.1 mg/dL (8.6-10.3); Magnesium 1.8 mg/dL (1.6-2.6); Potassium 3.2 mEq/L (3.5-5.1)
--- NOTE | 2017-11-12 10:14 | Discharge Summary ---
- NOTES TO OUTPATIENT PROVIDER Notes to Outpatient Provider: f/u with PCP in one week. f/u with Cardiology in one week Orders not resulted at time of discharge: Pending orders 11/10/17 01:26 EKG [ECG 12 lead ECG] [ECG] Routine 11/10/17 12:48 Culture,Sputum with Gram Stain [RM] Routine 11/12/17 09:00 PTT [Activated Partial Thrombo Time] [COAG] Timed Date of Encounter: 11/12/17 Time of Encounter: 10:13 - Discharge Diagnosis (1) NSTEMI (non-ST elevated myocardial infarction) Priority: Primary Status: Acute (2) Acute respiratory failure with hypoxia Priority: Primary Status: Acute (3) Systolic CHF, acute on chronic Priority: Primary Status: Acute (4) Cardiomyopathy Priority: Secondary Status: Chronic Qualifiers: Cardiomyopathy type: unspecified Qualified Code(s): I42.9 - Cardiomyopathy , unspecified (5) CAD (coronary artery disease) Priority: Secondary Status: Chronic Qualifiers: Coronary Disease-Associated Artery/Lesion type: [place] artery [place] vs. transplanted heart: [place] heart Associated angina: with stable angina Qualified Code(s): I25.118 - Atherosclerotic heart disease of [place] coronary artery with other forms of angina pectoris (6) HTN (hypertension) Priority: Secondary Status: Chronic Qualifiers: Hypertension type: essential hypertension Qualified Code(s): I10 - Essential (primary) hypertension (7) COPD (chronic obstructive pulmonary disease) Priority: Secondary Status: Chronic Qualifiers: COPD type: chronic bronchitis Chronic bronchitis type: unspecified Qualified Code(s): J42 - Unspecified chronic bronchitis Hospital course: Mr. Duke is a 81-year-old white male presents to ER with complaining of shortness of breath and chest pain. He has a history of COPD, chronic hypoxic resp failure and Systolic CHF. He also c/o chest pain, described as a midsternal chest burning that seems to have gotten somewhat better with nitro. He continues to be short of breath and upon arrival his oxygen saturation is 75% . He says he uses 3 L by nasal cannula at home 24 hours a day. His oxygen saturation improved significantly when he was placed in the bed and put on 5 L of nasal cannulated oxygen. He also have significantly elevated Trop @ 1.12 He was admitted in the hospital and started him on IV diuresis. Initially his troponin peaked at 1.16 and started trending down now. He denied any more CP. He was evaluated by Card and recommend [facility], however pt refused to go for cardiac cath and wanted to try medical management only. His SOB and pedal edema also improved. Pt feels like he is back to baseline and wants to go home today. He is breathing comfortably on 3 lit O2. - Time Spent with Patient Total time spent providing and/or coordinating discharge services: - Discharge Medications Prescriptions: Furosemide [Lasix] 20 mg PO BID #60 tablet Ranolazine [Ranexa] 500 mg PO BID #60 tab.er.12h Spironolactone [Aldactone] 12.5 mg PO DAILY #30 tablet Home Medications: Clopidogrel [Plavix] 75 mg PO DAILY 09/04/15 [History] HYDROcodone/Acet 5/325 mg [[place] 5-325 mg] 1 tab PO Q6H PRN 09/04/15 [History] Nitroglycerin [Nitrostat] 0.4 mg SL DAILY PRN 09/04/15 [History] Omeprazole [PriLOSEC] 20 mg PO DAILY 09/04/15 [History] Carvedilol 12.5 mg PO BID 02/16/16 [History] Isosorbide MONOnitrate (24 HR) [Imdur] 120 mg PO DAILY 02/16/16 [History] Simvastatin [Zocor] 40 mg PO HS 02/16/16 [History] Valsartan [Diovan] 40 mg PO DAILY 02/16/16 [History] Albuterol Sulfate [Albuterol Inhaler] 2 puff IH Q6HR PRN 07/06/17 [History] Ezetimibe [Zetia] 10 mg PO DAILY 07/06/17 [History] Tiotropium Br/Olodaterol HCl [Stiolto Respimat Inhal [place]] 2 puff IH DAILY [History] Aspirin Enteric Coated [Aspirin EC] 81 mg PO DAILY tablet. 11/12/17 [Rx] Furosemide [Lasix] 20 mg PO BID #60 tablet 11/12/17 [Rx] Ranolazine [Ranexa] 500 mg PO BID #60 tab.er.12h 11/12/17 [Rx] Spironolactone [Aldactone] 12.5 mg PO DAILY #30 tablet 11/12/17 [Rx] Allergies/Adverse Reactions: 3 Allergy/AdvReac Type Severity Reaction Status Date / Time lisinopril Allergy Severe Swelling Verified 03/30/15 07:40 of Lip/Tongue/Throat Date of admission: 11/09/17 15:41 Primary care physician: Wili Kendrick MD Consults: 11/09/17 22:00 Consult to Cardiology [CONS] Routine Comment: Consulting Provider: Card[facility] [place] Reason for Consult: Elevated trop 1.12 on hep drip, no cp Time Notified: 22:01 Call Completed: No - Constitutional Vitals: Temp Pulse Resp BP Pulse Ox 97.6 F 67 18 136/77 95 11/12/17 08:30 11/12/17 08:30 11/12/17 08:30 11/12/17 08:30 11/12/17 08:52 General appearance: Present: A&O X 3, no acute distress, answers questions appropriately - Head Head exam: Present: atraumatic, normal inspection - Neck Neck exam general surgery: Present: supple - Respiratory Respiratory exam: Present: decreased breath sounds. Absent: accessory muscle use, rales, respiratory distress, rhonchi, wheezes - Cardiovascular Cardiovascular exam: Present: RRR, +S1, +S2. Absent: tachycardia - GI/Abdominal GI/Abdominal exam: Present: normal bowel sounds, soft. Absent: rebound, rigid, tenderness - Extremities Exam Extremities exam: Absent: calf tenderness, pedal edema, tenderness - Back Exam Back exam: Absent: CVA tenderness (L), CVA tenderness (R) - Neurological Exam Neurological exam: Present: alert, oriented X3 - Psychiatric Psychiatric exam: Present: normal affect, normal mood - Skin Skin exam: Absent: rash - Patient Status Disposition: Home, Self-Care Condition: Good - Discharge Instructions Follow Up With: Wili Kendrick MD [Primary Care Provider] - - Diet and Activity Activity: increase activity as tolerated Diet: low salt diet
[2017-11-12] MEDS: Heparin 25,000 UNIT/500 ML D5W 25,000 UNIT/500 ML BAG IVC SCH (10:57)
[2017-11-12 11:53] VITALS: BP 108/64
--- NOTE | 2017-11-13 14:44 | Electrocardiograph Report ---
[address] [address] Test Date: 2017-11-10 Pat Name: Vito Duke Department: 112 Room: 2A26 Gender: M [employer]: SHAYY : 1935 Requested By: Steven Bragg Order Number: [id number] Reading MD: Vito Titus Measurements Intervals [place] Rate: 76 P: 9 ID: [id number] QRS: 82 QRSD: 160 T: -44 QT: 476 QTc: 506 Interpretive Statements ELECTRONIC VENTRICULAR PACEMAKER ABNORMAL RHYTHM ECG Electronically Signed On 11-13-2017 14:42:52 EDT by Vito Titus
== END 2017-11-12 13:30 | disposition home or self-care (01) | DRG 280 ==
LOC: 2ANU 15:41
PROVIDERS: ADMIT General Practice; ATTEND General Practice